=== PATIENT | female | born 1955 | race Caucasian/White ===

== ENCOUNTER → 2018-03-13 17:52 | Outpatient (CLI) | payer SELFPAY | END | disposition home or self-care (01) | LOC: D.LABREF 17:52 | DX: N39.0 Urinary tract infection, site not specified (principal) ==

== ENCOUNTER → 2018-03-20 12:48 | Outpatient (CLI) | payer SELFPAY | END | disposition home or self-care (01) | LOC: D.RAD 12:48 | DX: N20.0 Calculus of kidney (principal) ==